=== PATIENT | female | born 1965 | race Caucasian/White ===

== ENCOUNTER 2017-09-12 06:59 | Outpatient (CLI) | payer OTHER ==
[~2017-09-12 06:59] MED LIST: IRON1 TAB; VITAMIN B-12
== END 2017-09-12 07:19 | disposition home or self-care (01) ==
LOC: LAB 06:59
DX: N39.0 Urinary tract infection, site not specified (principal); E78.2 Mixed hyperlipidemia; E03.8 Other specified hypothyroidism; M81.0 Age-related osteoporosis without current pathological fracture

== ENCOUNTER 2017-10-28 05:01 | Emergency (ER) | payer OTHER ==
[~2017-10-28] VITALS: Ht 175.3 cm; Wt 87.5 kg
== END 2017-10-28 15:09 | disposition home or self-care (01) ==
LOC: ER 05:01
DX: K52.9 Noninfective gastroenteritis and colitis, unspecified (principal)